=== PATIENT | male | born 1980 | race Hispanic/Latino ===

== ENCOUNTER 2017-03-17 05:16 | Emergency (ER) | payer OTHER, SELFPAY ==
[2017-03-17] MEDS ORDERED: Ketorolac Tromethamine 30 MG/ML VIAL ONE (05:30)
[2017-03-17] MEDS ORDERED: Morphine 4 MG/ML VIAL ONE (05:30)
[2017-03-17 05:31] LABS: Bilirubin Negative (Negative); Blood, Urine Negative (Negative); Glucose, Urine (Dipstick) 100 mg/dL (Negative); Ketone, Urine Negative (Negative); Nitrite Negative (Negative); Protein, Urine (Dipstick) Trace mg/dL (Neg-Trace); Urobilinogen 0.2 mg/dL (0.2-1.0)
[2017-03-17 05:48] LABS: #Basophils 0.1 thou/uL (0.0-0.2); #Eosinphils 0.1 thou/uL (0.0-0.7); #Lymphocytes 2.5 thou/uL (1.20-3.40); #Monocytes 0.6 thou/uL (0.11-0.59); #Neutrophils 10.5 thou/uL (1.40-6.50); %Basophils 0.4 % (0.0-1.0); %Eosinophils 0.4 % (0.0-10.0); %Lymphocytes 18.5 % (21.0-51.0); %Monocytes 4.3 % (0.0-10.0); Hematocrit 45.3 % (42.0-52.0); Mean Platelet Volume 9.2 fL (7.4-10.4); Red Blood Cell (RBC) Count 5.22 mill/uL (4.70-6.10); White Blood Cell (WBC) Count 13.7 thou/uL (4.8-10.8)
[2017-03-17 06:03] LABS: ALT (SGPT) 34 U/L (8-55); AST (SGOT) 24 U/L (5-34); Alkaline Phosphatase 88 U/L (40-150); Anion Gap 19 mmol/L (10-20); BUN (Urea Nitrogen) 16 mg/dL (8.9-20.6); Bilirubin, Total 0.4 mg/dL (0.2-1.2); Calc. Creatinine Clearance 0 mL/min (70-130); Calcium 9.6 mg/dL (7.8-10.44); Carbon Dioxide 19 mmol/L (22-29); Chloride 100 mmol/L (98-107); Estimated GFR-MDRD 89; Globulin 3.6 g/dL (2.4-3.5); Protein, Total 8.1 g/dL (6.0-8.3)
--- NOTE | 2017-03-17 08:23 | CT ---
PRELIMINARY REPORT/[facility]/EMERGENCY AFTER HOURS PROCEDURE: EXAM: CT Abdomen and Pelvis Without Intravenous Contrast CLINICAL HISTORY: 36 years old, male; Pain; Abdominal pain; Flank; Right; Patient HX: R/O stone TECHNIQUE: Axial computed tomography images of the abdomen and pelvis without intravenous contrast. Coronal reformatted images were created and reviewed. COMPARISON: No relevant prior studies available. FINDINGS: The lung bases are clear. Right kidney: No intrarenal calculus, hydronephrosis or visible mass. No hydroureter or visible ureteral calculus. Left kidney: No intrarenal calculus. Minimal perinephric stranding. Mild right hydronephrosis and hydroureter. There is a 2 mm distal right ureteral calculus, at the UVJ. No definite gallbladder abnormality by CT. No biliary tree dilation. Unremarkable appearance of the liver, spleen, adrenal glands, and pancreas. No free air, ascites, or bowel distention. No retroperitoneal adenopathy. CT pelvis: Urinary bladder unremarkable by CT. The appendix is visualized and appears normal. There are no CT findings to strongly suggest diverticulitis. No abnormal mass or fluid collection in the pelvis. IMPRESSION: There is a 2 mm distal right ureteral calculus, at the UVJ. Mild right hydronephrosis and hydroureter. Normal appendix. No free air or bowel distention. Other findings discussed above. Thank you for allowing us to participate in the care of your patient. Dictated and Authenticated by: Demetrius Sevilla MD 03/17/2017 6:04 AM Central Time ([place] & [place]) FINAL REPORT EMERGENT AFTER HOURS NONCONTRAST CT ABDOMEN AND PELVIS: DATE: 03/17/17. HISTORY: Right flank pain with pain extending into the suprapubic region. The patient has been in mild discom fort for a few days, but pain is now worse and is constant. IMPRESSION: 1. Partially obstructing right UVJ calculus measuring approximately 2 mm with resultant mild right h ydronephrosis and hydroureter. 2. No left renal or ureteral calculus visualized. 3. No CT evidence of appendicitis. 4. Findings are in agreement with the preliminary report by [employer]. POS: [facility]
--- NOTE | 2017-03-17 10:38 | ULT ---
TESTICULAR ULTRASOUND: DATE: 03/17/17. HISTORY: Right-sided testicular pain. FINDINGS: The testicles demonstrate slight heterogeneity, but the testicles demonstrate overall symmetric echot exture bilaterally and there is no testicular mass seen. The right testicle measures 5.3 cm x 2.1 cm x 2.9 cm with the left testicle measuring 4.9 cm x 1.9 cm x 3 cm. Doppler evaluation of each testicle with spectral analysis and color flow evaluation demonstrates bot h arterial and venous flow. The epididymes demonstrate a normal sonographic appearance bilaterally. There is no evidence of a hydrocele. A small amount of fluid is seen adjacent to the right testicle which is physiologic in origin. IMPRESSION: Slight heterogeneous echotexture of each testicle, but the testicles are symmetric in appearance bila terally and are otherwise normal in appearance without evidence of a testicular mass. POS: [facility]
== END 2017-03-17 07:05 | disposition home or self-care (01) ==
LOC: ERS 05:16
DX: N13.2 Hydronephrosis with renal and ureteral calculous obstruction (principal)
CPT/HCPCS: 74176; 76870; 80053; 81003; 85025; 93976; 96361; 96374; 96375; J1885; J2270

== ENCOUNTER 2023-07-12 10:29 | Outpatient (CLI) | payer OTHER | END 2023-07-12 10:30 | disposition home or self-care (01) | LOC: ULT 10:29 | PROVIDERS: ATTEND Family Medicine | DX: R10.9 Unspecified abdominal pain (principal) | CPT/HCPCS: 76700 ==